=== PATIENT | female | born 1995 | race African-American/Black ===

== ENCOUNTER 2020-05-07 00:44 | Inpatient (IN) ==
[2020-05-07] MEDS ORDERED: ONDANSETRON 4 MG/2 ML VIAL IV PRN ×2 (01:00→03:48)
[2020-05-07] MEDS ORDERED: MEPERIDINE 50 MG/1 ML VIAL IV PRN (01:00)
[2020-05-07] MEDS ORDERED: LACTATED RINGERS 1,000 ML IV SCH (01:00)
[2020-05-07] MEDS ORDERED: BUTORPHANOL 2 MG/ML VIAL IV PRN (01:00)
[2020-05-07] MEDS ORDERED: LACTATED RINGERS 1,000 ML IV ONE (01:01)
[2020-05-07] MEDS ORDERED: hydrOXYzine HCL 25 MG/1 ML VIAL IM PRN (01:01)
[2020-05-07] MEDS ORDERED: FAMOTIDINE 20 MG/2 ML VIAL IV ONE (01:01)
[2020-05-07] MEDS ORDERED: NALOXONE 0.4 MG/ML VIAL IV PRN (01:01)
[2020-05-07] MEDS ORDERED: ONDANSETRON 4 MG/2 ML VIAL IV ONE (01:01)
[2020-05-07] MEDS ORDERED: CITRIC ACID/SODIUM CITRATE 30 ML UDCUP PO ONE (01:01)
[2020-05-07] MEDS ORDERED: PROMETHAZINE 25 MG/1 ML VIAL IM ONE (01:01)
[2020-05-07] MEDS ORDERED: diphenhydrAMINE 50 MG/1 ML VIAL IV PRN ×2 (01:01)
[2020-05-07] MEDS ORDERED: ePHEDrine 50 MG/ML VIAL IV PRN (01:01)
[2020-05-07] MEDS ORDERED: fentaNYL 2 MCG/ROPIV 0.2% EPID 100 ML EPIDURAL SCH (01:30)
[2020-05-07] MEDS ORDERED: AMPICILLIN INJ 2,000 MG in SODIUM CHLORIDE 0.9% 100 ML IV ONE (01:34)
[2020-05-07 01:37] LABS: Basophils % 0.3 % (0.0-0.8); Eosinophils % 0.2 % (0.00-10.9); Hematocrit 35.9 VOL% (35.7-47.0); Hemoglobin 11.5 GM/DL (12.0-16.0); Immature Granulocytes % 2.8 %; Immature Granulocytes Absolute 0.44 #; Lymphocytes # 2.1 10*3/uL (1.4-4.0); Lymphocytes % 13.7 % (21.3-54.2); Mean Corpuscular Volume 92.3 FL (87-102); Mean Platelet Volume 10.7 FL (9.6-12.0); Monocytes % 7.5 % (1.7-12.7); Neutrophils % 75.5 % (38.7-73.9); Platelet Count 203 T/CUMM (130-400); Red Blood Count 3.89 MC/CUMM (3.8-5.5); Red Cell Distribution Width 14.1 % (9.3-17.3); White Blood Count 15.6 T/CUMM (4-12)
[2020-05-07] MEDS ORDERED: miSOPROStoL 200 MCG TABLET ONE (01:40)
[2020-05-07] MEDS ORDERED: OXYTOCIN/LR 20 UNIT/1,000 ML BAG IV ONE ×2 (01:40→03:48)
[2020-05-07] MEDS ORDERED: METHYLERGONOVINE 0.2 MG/1 ML AMP ONE (01:41)
[2020-05-07] MEDS ORDERED: CARBOPROST TROMETHAMINE 250 MCG/ML AMP IM ONE (01:41)
[2020-05-07] MEDS ORDERED: MEASLES/MUMPS/RUBELLA VACCINE 0.5 ML VIAL SUBCUT ONE (03:48)
[2020-05-07] MEDS ORDERED: oxyCODONE/ACETAMINOPHEN 5-325 MG TABLET PO PRN ×2 (03:48)
[2020-05-07] MEDS ORDERED: LANOLIN 50% CREAM 0.3 OZ TUBE TOP PRN (03:48)
[2020-05-07] MEDS ORDERED: DIPH/TET/ACEL PERT BOOSTER VACCINE 0.5 ML VIAL IM ONE (03:48)
[2020-05-07] MEDS ORDERED: BENZOCAINE 20%/MENTHOL 0.5% SPRAY 56 GM CAN TOP PRN (03:48)
[2020-05-07] MEDS ORDERED: ACETAMINOPHEN 325 MG TABLET PO PRN (03:48)
[2020-05-07] MEDS ORDERED: RHO(D) IMMUNE GLOBULIN 300 MCG SYRINGE IM ONE (03:48)
[2020-05-07] MEDS ORDERED: BISACODYL 10 MG SUPP RECTAL PRN (03:48)
[2020-05-07] MEDS ORDERED: WITCH HAZEL PADS 100/JAR TOP PRN (03:48)
[2020-05-07] MEDS ORDERED: HYDROCORTISONE 2.5% RECTAL CREAM 30 GM TUBE TOP PRN (03:48)
[2020-05-07 03:58] LABS: Bilirubin,Urine Negative (Negative); Blood, Urine Negative (Negative); Glucose,Urine (UA) Negative (Negative); Ketones,Urine Negative (Negative); Mucus,Urine Occasional /LPF (Occasional); Nitrite,Urine Negative (Negative); Protein,Urine Negative; RBC,Urine 2 /HPF (0-4); Squamous Epithelial Cell,Urine Occasional /HPF (0-10); Urine Appearance CLEAR (Clear); Urine Color Yellow (Yellow); Urine Urobilinogen < 2.0 EU/DL (0.2-1.0); WBC,Urine 1 /HPF (0-6)
[2020-05-07] MEDS ORDERED: AMPICILLIN INJ 1,000 MG in SODIUM CHLORIDE 0.9% 100 ML IV SCH (04:00)
[2020-05-07 04:10] LABS: Barbiturates Screen,Urine Negative (Negative); Benzodiazepines Screen,Urine Negative (Negative); Cannabinoid Screen,Urine Positive (Negative); Opiate Screen,Urine Negative (Negative); Phencyclidine Screen,Urine Negative (Negative)
[2020-05-07 04:27] LABS: Cord Venous Blood HCO3 22.4 MMOL/L; Cord Venous Blood PCO2 40.9 MMHG; Cord Venous Blood PO2 35.1
[2020-05-07] MEDS: DOCUSATE SODIUM 100 MG CAPSULE PO SCH ×3 (07:49→21:19)
[2020-05-07] MEDS: diphenhydrAMINE CAP 25 MG CAPSULE PO PRN ×2 (07:49→19:51)
[2020-05-07] MEDS: IBUPROFEN 800 MG TABLET PO PRN ×2 (09:20→19:56)
[2020-05-07 10:07] LABS: Basophils % 0.2 % (0.0-0.8); Hematocrit 34.3 VOL% (35.7-47.0); Immature Granulocytes % 1.2 %; Immature Granulocytes Absolute 0.26 #; Lymphocytes # 1.3 10*3/uL (1.4-4.0); Lymphocytes % 6.3 % (21.3-54.2); Mean Corpuscular HGB Conc 32.1 GM/DL (32-36); Mean Platelet Volume 10.7 FL (9.6-12.0); Neutrophils % 88.3 % (38.7-73.9); Platelet Count 189 T/CUMM (130-400); Red Blood Count 3.73 MC/CUMM (3.8-5.5); White Blood Count 21.1 T/CUMM (4-12)
[2020-05-07 10:29] LABS: Hypochromasia 1+; Lymphocytes 6 % (20-55); Microcytosis 1+; Platelet Estimate Adequate; Segmented Neutrophils 89 % (50-85); Total Cells Counted 100
[2020-05-08] MEDS: DOCUSATE SODIUM 100 MG CAPSULE PO SCH (08:26)
[2020-05-08] MEDS: IBUPROFEN 800 MG TABLET PO PRN (08:26)
[2020-05-08 11:54] VITALS: BP 137/72
== END 2020-05-08 15:30 | disposition home or self-care (01) | DRG 560 ==
LOC: N.LAB 00:44 → N.LD 00:46 → N.OB 07:34
PROVIDERS: ADMIT Obstetrics & Gynecology; ATTEND Obstetrics & Gynecology